=== PATIENT | male | born 1935 | race Caucasian/White ===

== ENCOUNTER 2023-09-14 10:53 | Inpatient (IN) | payer MEDICARE ==
[~2023-09-14] VITALS: Ht 172.7 cm; Wt 82.1 kg
[2023-09-14] MEDS ORDERED: CHOL25TA4 PO (11:10)
[2023-09-14] MEDS ORDERED: LISI-892 PO (11:10)
[2023-09-14] MEDS ORDERED: FLUT1AER7 IH (11:10)
[2023-09-14] MEDS ORDERED: SERT-158 PO (11:10)
[2023-09-14] MEDS ORDERED: DORZ10DR6 OU (11:10)
[2023-09-14] MEDS ORDERED: LATA2.5D14 OU (11:10)
[2023-09-14] MEDS ORDERED: TAMS0.4C94 PO (11:10)
[2023-09-14] MEDS ORDERED: ATOR10TA PO (11:10)
[2023-09-14] MEDS ORDERED: FINA-27 PO (11:10)
[2023-09-14] MEDS ORDERED: TRAZ-252 PO (11:10)
[2023-09-14 11:16] LABS: COVID AG,FIA SOURCE NASAL SWAB
[2023-09-14 11:20] LABS: BASOPHILS % (AUTO) 0.6 % (0.0-2.0); EOSINOPHILS % (AUTO) 0.6 % (1.0-6.0); HEMATOCRIT 42.9 % (41-53); LYMPHOCYTES # (AUTO) 0.7 K/uL (1.0-4.8); LYMPHOCYTES % (AUTO) 10.6 % (22.0-44.0); MEAN CORPUSCULAR HEMOGLOBIN 30.5 pg (26.0-34.0); MEAN CORPUSCULAR HGB CONC 32.7 G/dL (31.0-37.0); MEAN CORPUSCULAR VOLUME 93 fL (80-100); MONOCYTES # (AUTO) 0.6 K/uL (0.1-1.0); MONOCYTES % (AUTO) 8.6 % (2.0-9.0); NEUTROPHILS # (AUTO) 5.2 K/uL (1.8-7.7); NEUTROPHILS % (AUTO) 79.6 % (40.0-70.0); PLATELET COUNT (AUTO) 263 K/uL (150-450); RED CELL DISTRIBUTION WIDTH 14.6 % (11.5-14.5); WHITE BLOOD COUNT (AUTO) 6.6 K/uL (4.5-11.0)
[2023-09-14 11:24] LABS: APPEARANCE,URINE CLEAR (CLEAR); BILIRUBIN,URINE NEGATIVE (NEGATIVE); COLOR,URINE YELLOW (YELLOW); GLUCOSE, URINE (UA) >=1000 mg/dL (NEGATIVE); KETONES,URINE TRACE mg/dL (NEGATIVE); LEUKOCYTE ESTERASE ,URINE NEGATIVE (NEGATIVE); NITRATE,URINE NEGATIVE (NEGATIVE); OCCULT BLOOD,URINE NEGATIVE (NEGATIVE); PH,URINE 6.5 (5.0-8.0); PROTEIN,URINE TRACE mg/dL (NEGATIVE); SPECIFIC GRAVITIY, URINE 1.019 (1.003-1.030); UROBILINOGEN,URINE <=1.0 mg/dL (<=1.0)
[2023-09-14 11:43] LABS: ALCOHOL, BLOOD (SERUM) < 3 mg/dL (0-10)
[2023-09-14 11:47] LABS: ANION GAP 4 mmol/L (8-16); CALCIUM, TOTAL 8.7 mg/dL (8.8-10.5); CARBON DIOXIDE 31 mmol/L (22-29); CHLORIDE 100 mmol/L (98-107); CREATININE 0.74 mg/dL (0.60-1.30); GLOMERULAR FILTR. RATE CALC > 60 mL/min (>60); GLUCOSE,RANDOM 206 mg/dL (70-110); POTASSIUM 4.2 mmol/L (3.5-5.1); SODIUM SERUM 135 mmol/L (136-145); UREA NITROGEN, BLOOD 17 mg/dL (7-18)
[2023-09-14 11:51] LABS: BACTERIA,URINE None Seen /HPF (None Seen); RBC,URINE None Seen /HPF (0-2); SQUAMOUS EPITHELIAL CELL,UR Few /LPF (None Seen); WBC,URINE 0-2 /HPF (0-5)
[2023-09-14 11:54] LABS: SARS-COV2 (COVID) ANTIGEN,FIA Negative (Negative)
[2023-09-14 12:04] LABS: ALCOHOL, URINE DRUG SCREEN NEGATIVE (NEGATIVE); AMPHET/METH SCREEN,URINE NEGATIVE (NEGATIVE); BARBITURATE SCREEN, URINE NEGATIVE (NEGATIVE); BENZODIAZEPINES SCREEN,URINE NEGATIVE (NEGATIVE); CANNABINOID SCREEN,URINE NEGATIVE (NEGATIVE); COCAINE SCREEN,URINE NEGATIVE (NEGATIVE); METHADONE SCREEN, URINE NEGATIVE (NEGATIVE); OPIATE SCREEN,URINE NEGATIVE (NEGATIVE); PH,URINE DRUG SCREEN 6.5 (5.0-8.0); PHENCYCLIDINE SCREEN,URINE NEGATIVE (NEGATIVE)
[2023-09-14] MEDS: HALOPERIDOL LACTATE 5 MG/ML VIAL IM ONE (12:52)
[2023-09-14] MEDS: LORazepam 2 MG/ML VIAL IM ONE (12:52)
[2023-09-14] MEDS: DiphenhydrAMINE HCL 50 MG/ML VIAL IM ONE (12:52)
[2023-09-14] MEDS ORDERED: QUEtiapine FUMARATE 100 MG TABLET PO PRN (13:45)
[2023-09-14] MEDS ORDERED: LORazepam 2 MG TABLET PO PRN (13:45)
[2023-09-15] MEDS: ZOLPIDEM TARTRATE 10 MG TABLET PO PRN (00:55)
[2023-09-15 22:13] VITALS: BP 135/75; PULSE 74; RESP 18; TEMP 98.1; O2SAT 98
[2023-09-15 22:29] VITALS: BP 135/75; PULSE 74; RESP 18; TEMP 98.1
[2023-09-16 08:00] VITALS: BP 128/62; PULSE 93; RESP 18; TEMP 97.8; O2SAT 98
[2023-09-16] MEDS ORDERED: ALBUTEROL SULFATE HFA 90 MCG/PUFF 8 GM INHALER IH PRN (09:00)
[2023-09-16] MEDS ORDERED: ONDANSETRON HCL 4 MG TABLET PO PRN (09:00)
[2023-09-16] MEDS ORDERED: MAG HYDROX/ALUMINUM HYD/SIMETH ES 30 ML SUSPENSION UDCUP PO PRN (09:00)
[2023-09-16] MEDS ORDERED: GuaiFENesin/D-METHORPHAN [SUGAR-FREE] 200-20MG/10 ML SYRUP UDCUP PO PRN (09:00)
[2023-09-16] MEDS ORDERED: NICOTINE 14 MG/24 HOUR PATCH TD PRN (09:00)
[2023-09-16] MEDS ORDERED: ACETAMINOPHEN 325 MG TABLET PO PRN (09:00)
[2023-09-16] MEDS ORDERED: LOPERAMIDE HCL 2 MG CAPSULE PO PRN (09:00)
[2023-09-16] MEDS ORDERED: PETROLATUM,WHITE 28 GM JELLY TP PRN (09:00)
[2023-09-16] MEDS ORDERED: IBUPROFEN 400 MG TABLET PO PRN (09:00)
[2023-09-16] MEDS ORDERED: CloNIDine HCL 0.1 MG TABLET PO PRN (09:00)
[2023-09-16] MEDS: FINASTERIDE 5 MG TABLET PO SCH (09:53)
[2023-09-16] MEDS: DORZOLAMIDE HCL 2% 10 ML OPHTHALMIC SOLUTION OU SCH (09:59)
[2023-09-16] MEDS: LATANOPROST 0.005% 2.5 ML OPHTHALMIC SOLUTION OU SCH (09:59)
[2023-09-16] MEDS: LISINOPRIL 5 MG TABLET PO SCH (10:00)
[2023-09-16] MEDS: CHOLECALCIFEROL (VIT D3) 1,000 UNITS [25 MCG] TABLET PO SCH (10:00)
[2023-09-16] MEDS: TAMSULOSIN HCL 0.4 MG CAPSULE PO SCH (10:00)
[2023-09-16] MEDS: MAGNESIUM HYDROXIDE SUSPENSION 30 ML UDCUP PO PRN (10:54)
[2023-09-16] MEDS: DOCUSATE SODIUM 100 MG CAPSULE PO PRN (10:55)
[2023-09-16] MEDS: SERTRALINE HCL 50 MG TABLET PO SCH (14:37)
[2023-09-16] MEDS: DIVALPROEX SODIUM 250 MG DR TABLET PO SCH (16:11)
[2023-09-16] MEDS: ATORVASTATIN CALCIUM 10 MG TABLET PO SCH (20:24)
[2023-09-16 22:36] VITALS: RESP 18
[2023-09-17 07:51] LABS: HEMOGLOBIN A1C 7.7 % (3.8-5.6)
[2023-09-17 08:01] LABS: THYROID STIMULATING HORMONE 1.62 uIU/mL (0.36-3.74)
[2023-09-17 08:33] LABS: CHOL/HDL RATIO 2.3 (4.2-7.3)
[2023-09-17 09:18] VITALS: RESP 18
[2023-09-17 17:31] LABS: GLUCOMETER DEV NAME(LOC) 3E.I 2; GLUCOSE,POINT OF CARE 217 MG/DL (70-110)
[2023-09-17 20:44] VITALS: RESP 18
[2023-09-18] MEDS: MetFORMIN HCL 500 MG TABLET PO SCH (07:17)
[2023-09-18 10:24] VITALS: BP 152/59; PULSE 107; RESP 18; TEMP 97.5; O2SAT 98
[2023-09-18 16:41] LABS: GLUCOMETER DEV NAME(LOC) 3E.I 2; GLUCOSE,POINT OF CARE 155 MG/DL (70-110)
[2023-09-18 22:23] VITALS: BP 117/77; PULSE 97; RESP 18; TEMP 98.1; O2SAT 97
[2023-09-19 11:28] VITALS: BP 113/67; PULSE 76; RESP 17; TEMP 96.8; O2SAT 97
[2023-09-19 17:41] LABS: GLUCOMETER DEV NAME(LOC) 3EX.2; GLUCOSE,POINT OF CARE 277 MG/DL (70-110)
[2023-09-19 22:33] VITALS: BP 115/63; PULSE 86; RESP 18; TEMP 98.3; O2SAT 95
[2023-09-20] MEDS ORDERED: INSULIN LISPRO 100 UNITS/ML SQ PRN (06:30)
[2023-09-20] MEDS ORDERED: DEXTROSE 50%-WATER 25 GM/50 ML SYRINGE IVP PRN (06:30)
[2023-09-20 15:00] VITALS: BP 140/73; PULSE 69; RESP 16; TEMP 98; O2SAT 98
[2023-09-20 17:50] LABS: GLUCOMETER DEV NAME(LOC) 3EX.2; GLUCOSE,POINT OF CARE 217 MG/DL (70-110)
[2023-09-20 21:37] VITALS: BP 101/51; PULSE 89; RESP 18; TEMP 98.8; O2SAT 96
[2023-09-21 09:47] VITALS: BP 117/63; PULSE 95; RESP 19; TEMP 97.2; O2SAT 97
[2023-09-21] MEDS ORDERED: DIVA-111 PO ×2 (12:56→12:57)
[2023-09-21] MEDS ORDERED: METF-1211 PO (13:02)
[2023-09-21] MEDS ORDERED: MetFORMIN HCL 500 MG TABLET PO SCH (17:30)
== END 2023-09-21 15:56 | DRG 885 ==
LOC: EMS 10:55 → 3EI 09-15 20:00 → EMS 09-15 20:02 → 3EX 09-18 13:39
PROVIDERS: ADMIT Psychiatry & Neurology Psychiatry; ATTEND Psychiatry & Neurology Psychiatry
PROC: GZHZZZZ Group Psychotherapy (ICD-10-PCS; principal; 2023-09-16)
DX: F33.3 Major depressive disorder, recurrent, severe with psychotic symptoms (principal); F03.918 Unspecified dementia, unspecified severity, with other behavioral disturbance; E11.9 Type 2 diabetes mellitus without complications; E78.5 Hyperlipidemia, unspecified; I10 Essential (primary) hypertension; E55.9 Vitamin D deficiency, unspecified; Z20.822 Contact with and (suspected) exposure to COVID-19; N40.0 Benign prostatic hyperplasia without lower urinary tract symptoms; J44.9 Chronic obstructive pulmonary disease, unspecified; Z79.899 Other long term (current) drug therapy
CPT/HCPCS: 80048; 80061; 80307; 81001; 82962; 83036; 84443; 85025; 99291; G0378; G0480; J1200; J1630; J2060

== ENCOUNTER 2023-12-18 16:55 | Inpatient (IN) | payer MEDICARE, MEDICAID ==
[~2023-12-18] VITALS: Ht 175.3 cm; Wt 71.7 kg
[~2023-12-18 16:55] MED LIST: ATOR10TA PO; CHOL25TA4 PO; DIVA-111 PO; DORZ10DR6 OU; FINA-27 PO; LATA2.5D14 OU; LISI-892 PO; METF-1211 PO; SERT-158 PO; TAMS0.4C94 PO
[2023-12-18] MEDS ORDERED: SERT-439 PO (17:28)
[2023-12-18] MEDS ORDERED: FINA5TAB41 PO (17:28)
[2023-12-18] MEDS ORDERED: ATOR10TA69 PO (17:28)
[2023-12-18] MEDS ORDERED: LISI5TAB21 PO (17:28)
[2023-12-18 17:47] LABS: COVID AG,FIA SOURCE NPH
[2023-12-18 17:51] LABS: BASOPHILS % (AUTO) 0.7 % (0.0-2.0); EOSINOPHILS % (AUTO) 1.9 % (1.0-6.0); HEMATOCRIT 43.1 % (41-53); HEMOGLOBIN 14.1 g/dL (13.5-17.5); LYMPHOCYTES # (AUTO) 1.3 K/uL (1.0-4.8); LYMPHOCYTES % (AUTO) 23.3 % (22.0-44.0); MEAN CORPUSCULAR HEMOGLOBIN 30.9 pg (26.0-34.0); MEAN CORPUSCULAR HGB CONC 32.7 G/dL (31.0-37.0); MEAN CORPUSCULAR VOLUME 94 fL (80-100); MONOCYTES # (AUTO) 0.7 K/uL (0.1-1.0); MONOCYTES % (AUTO) 12.5 % (2.0-9.0); NEUTROPHILS # (AUTO) 3.5 K/uL (1.8-7.7); NEUTROPHILS % (AUTO) 61.6 % (40.0-70.0); PLATELET COUNT (AUTO) 196 K/uL (150-450); RED BLOOD CELL COUNT(AUTO) 4.57 MIL/uL (4.50-5.90); WHITE BLOOD COUNT (AUTO) 5.7 K/uL (4.5-11.0)
[2023-12-18 18:03] LABS: ANION GAP 1 mmol/L (8-16); CALCIUM, TOTAL 9.1 mg/dL (8.8-10.5); CARBON DIOXIDE 35 mmol/L (22-29); CHLORIDE 102 mmol/L (98-107); CREATININE 0.54 mg/dL (0.60-1.30); GLOMERULAR FILTR. RATE CALC > 60 mL/min (>60); GLUCOSE,RANDOM 156 mg/dL (70-110); POTASSIUM 4.1 mmol/L (3.5-5.1); SODIUM SERUM 138 mmol/L (136-145); UREA NITROGEN, BLOOD 14 mg/dL (7-18)
[2023-12-18 18:08] LABS: VALPROIC ACID 9 mcg/mL (50-100)
[2023-12-18 18:10] LABS: SARS-COV2 (COVID) ANTIGEN,FIA Negative (Negative)
[2023-12-18 18:13] LABS: ALCOHOL, BLOOD (SERUM) < 3 mg/dL (0-10)
[2023-12-18] MEDS: ZOLPIDEM TARTRATE 10 MG TABLET PO PRN (22:29)
[2023-12-19 06:02] LABS: HEMOGLOBIN A1C 6.2 % (3.8-5.6)
[2023-12-19 06:05] LABS: CHOL/HDL RATIO 1.8 (4.2-7.3)
[2023-12-19 07:56] LABS: APPEARANCE,URINE HAZY (CLEAR); BILIRUBIN,URINE NEGATIVE (NEGATIVE); COLOR,URINE LIGHT YELLOW (YELLOW); GLUCOSE, URINE (UA) NEGATIVE (NEGATIVE); KETONES,URINE NEGATIVE (NEGATIVE); LEUKOCYTE ESTERASE ,URINE NEGATIVE (NEGATIVE); NITRATE,URINE NEGATIVE (NEGATIVE); OCCULT BLOOD,URINE NEGATIVE (NEGATIVE); PH,URINE 7.5 (5.0-8.0); PH,URINE DRUG SCREEN 7.5 (5.0-8.0); PROTEIN,URINE NEGATIVE (NEGATIVE); SPECIFIC GRAVITIY, URINE 1.011 (1.003-1.030); UROBILINOGEN,URINE <=1.0 mg/dL (<=1.0)
[2023-12-19 08:04] LABS: ALCOHOL, URINE DRUG SCREEN NEGATIVE (NEGATIVE); AMPHET/METH SCREEN,URINE NEGATIVE (NEGATIVE); BARBITURATE SCREEN, URINE NEGATIVE (NEGATIVE); BENZODIAZEPINES SCREEN,URINE NEGATIVE (NEGATIVE); CANNABINOID SCREEN,URINE NEGATIVE (NEGATIVE); COCAINE SCREEN,URINE NEGATIVE (NEGATIVE); METHADONE SCREEN, URINE NEGATIVE (NEGATIVE); OPIATE SCREEN,URINE NEGATIVE (NEGATIVE); PHENCYCLIDINE SCREEN,URINE NEGATIVE (NEGATIVE)
[2023-12-19] MEDS: HALOPERIDOL 5 MG TABLET PO PRN (17:07)
[2023-12-19] MEDS: LORazepam 2 MG TABLET PO PRN (17:07)
[2023-12-20 08:00] VITALS: O2SAT 97
[2023-12-20 10:44] VITALS: BP 132/78; PULSE 85; RESP 18; TEMP 98; O2SAT 97
[2023-12-20] MEDS ORDERED: INFLUENZA VIRUS VACCINE TVS (6MO+) 2024-25/PF 45 MCG/0.5 ML SYRINGE IM. ONE (11:45)
[2023-12-20] MEDS ORDERED: PETROLATUM,WHITE 28 GM JELLY TP PRN (14:30)
[2023-12-20] MEDS ORDERED: NICOTINE 14 MG/24 HOUR PATCH TD PRN (14:30)
[2023-12-20] MEDS ORDERED: ONDANSETRON 4 MG TABLET PO PRN (14:30)
[2023-12-20] MEDS ORDERED: DOCUSATE SODIUM 100 MG CAPSULE PO PRN (14:30)
[2023-12-20] MEDS ORDERED: MAGNESIUM HYDROXIDE SUSPENSION 30 ML UDCUP PO PRN (14:30)
[2023-12-20] MEDS ORDERED: GuaiFENesin/D-METHORPHAN [SUGAR-FREE] 200-20MG/10 ML SYRUP UDCUP PO PRN (14:30)
[2023-12-20] MEDS ORDERED: ACETAMINOPHEN 325 MG TABLET PO PRN (14:30)
[2023-12-20] MEDS ORDERED: CloNIDine HCL 0.1 MG TABLET PO PRN (14:30)
[2023-12-20] MEDS ORDERED: LOPERAMIDE HCL 2 MG CAPSULE PO PRN (14:30)
[2023-12-20] MEDS ORDERED: MAG HYDROX/ALUMINUM HYD/SIMETH ES 30 ML SUSPENSION UDCUP PO PRN (14:30)
[2023-12-20] MEDS ORDERED: ALBUTEROL SULFATE HFA 90 MCG/PUFF 8 GM INHALER IH PRN (14:30)
[2023-12-20 16:18] LABS: APPEARANCE,URINE CLEAR (CLEAR); BILIRUBIN,URINE NEGATIVE (NEGATIVE); COLOR,URINE LIGHT YELLOW (YELLOW); GLUCOSE, URINE (UA) TRACE mg/dL (NEGATIVE); KETONES,URINE NEGATIVE (NEGATIVE); LEUKOCYTE ESTERASE ,URINE NEGATIVE (NEGATIVE); NITRATE,URINE NEGATIVE (NEGATIVE); OCCULT BLOOD,URINE NEGATIVE (NEGATIVE); PH,URINE 7.5 (5.0-8.0); PH,URINE DRUG SCREEN 7.5 (5.0-8.0); PROTEIN,URINE NEGATIVE (NEGATIVE); SPECIFIC GRAVITIY, URINE 1.011 (1.003-1.030); UROBILINOGEN,URINE <=1.0 mg/dL (<=1.0)
[2023-12-20 16:26] LABS: ALCOHOL, URINE DRUG SCREEN NEGATIVE (NEGATIVE); AMPHET/METH SCREEN,URINE NEGATIVE (NEGATIVE); BARBITURATE SCREEN, URINE NEGATIVE (NEGATIVE); BENZODIAZEPINES SCREEN,URINE NEGATIVE (NEGATIVE); CANNABINOID SCREEN,URINE NEGATIVE (NEGATIVE); COCAINE SCREEN,URINE NEGATIVE (NEGATIVE); METHADONE SCREEN, URINE NEGATIVE (NEGATIVE); OPIATE SCREEN,URINE NEGATIVE (NEGATIVE); PHENCYCLIDINE SCREEN,URINE NEGATIVE (NEGATIVE)
[2023-12-20] MEDS: MetFORMIN HCL 500 MG TABLET PO SCH (16:29)
[2023-12-20 17:40] LABS: GLUCOMETER DEV NAME(LOC) 3EX.2; GLUCOSE,POINT OF CARE 165 MG/DL (70-110)
[2023-12-20 18:15] VITALS: BP 112/82; PULSE 90; RESP 20; TEMP 98.3; O2SAT 97
[2023-12-20] MEDS ORDERED: DEXTROSE 50%-WATER 25 GM/50 ML SYRINGE IVP PRN (18:45)
[2023-12-20 20:11] VITALS: BP 121/83; PULSE 85; RESP 18; TEMP 98
[2023-12-20 20:34] LABS: TROPONIN I-HIGH SENSITIVITY 5 ng/L (<76)
[2023-12-20] MEDS: DIVALPROEX SODIUM 250 MG DR TABLET PO SCH (20:52)
[2023-12-21 06:21] LABS: GLUCOMETER DEV NAME(LOC) 3EX.2; GLUCOSE,POINT OF CARE 86 MG/DL (70-110)
[2023-12-21] MEDS: INSULIN LISPRO 100 UNITS/ML SQ PRN (07:01)
[2023-12-21 08:35] LABS: HEMOGLOBIN A1C 6.1 % (3.8-5.6)
[2023-12-21 08:44] LABS: CHOL/HDL RATIO 2.1 (4.2-7.3); THYROID STIMULATING HORMONE 1.76 uIU/mL (0.36-3.74)
[2023-12-21 09:05] VITALS: BP 122/77; PULSE 100; RESP 16; TEMP 97.9; O2SAT 95
[2023-12-21] MEDS: LISINOPRIL 5 MG TABLET PO SCH (09:33)
[2023-12-21] MEDS: TAMSULOSIN HCL 0.4 MG CAPSULE PO SCH (09:33)
[2023-12-21] MEDS: SERTRALINE HCL 50 MG TABLET PO SCH (09:33)
[2023-12-21] MEDS: ATORVASTATIN CALCIUM 10 MG TABLET PO SCH (09:34)
[2023-12-21] MEDS: FINASTERIDE 5 MG TABLET PO SCH (09:34)
[2023-12-21] MEDS: CHOLECALCIFEROL (VIT D3) 1,000 UNITS [25 MCG] TABLET PO SCH (09:34)
[2023-12-21 11:56] LABS: GLUCOMETER DEV NAME(LOC) 3EX.2; GLUCOSE,POINT OF CARE 153 MG/DL (70-110)
[2023-12-21 17:21] LABS: GLUCOMETER DEV NAME(LOC) 3EX.2; GLUCOSE,POINT OF CARE 161 MG/DL (70-110)
[2023-12-21 20:16] LABS: GLUCOMETER DEV NAME(LOC) 3EX.2; GLUCOSE,POINT OF CARE 172 MG/DL (70-110)
[2023-12-21 21:13] VITALS: BP 101/55; PULSE 98; RESP 18; TEMP 99.1; O2SAT 96
[2023-12-21 21:45] VITALS: BP 101/55; PULSE 98; RESP 18; TEMP 99.1; O2SAT 96
[2023-12-21] MEDS: IBUPROFEN 400 MG TABLET PO PRN (21:48)
[2023-12-21] MEDS: ETHYL ALCOHOL 62% ANTISEPTIC NASAL SANITIZER 0.6 ML AMPUL NASAL SCH (21:48)
[2023-12-22 06:30] LABS: GLUCOMETER DEV NAME(LOC) 3EX.2; GLUCOSE,POINT OF CARE 114 MG/DL (70-110)
[2023-12-22 10:09] VITALS: BP 104/69; PULSE 97; RESP 18; TEMP 97.6; O2SAT 97
[2023-12-22 12:01] LABS: GLUCOMETER DEV NAME(LOC) 3EX.2; GLUCOSE,POINT OF CARE 138 MG/DL (70-110)
[2023-12-22 16:31] LABS: GLUCOMETER DEV NAME(LOC) 3EX.2; GLUCOSE,POINT OF CARE 168 MG/DL (70-110)
[2023-12-22 20:30] LABS: GLUCOMETER DEV NAME(LOC) 3EX.2; GLUCOSE,POINT OF CARE 121 MG/DL (70-110)
[2023-12-22 21:28] VITALS: BP 115/58; PULSE 97; RESP 18; TEMP 98.1; O2SAT 96
[2023-12-23 06:00] LABS: GLUCOMETER DEV NAME(LOC) 3EX.2; GLUCOSE,POINT OF CARE 122 MG/DL (70-110)
[2023-12-23 09:34] VITALS: BP 123/50; PULSE 62; RESP 17; TEMP 97.6; O2SAT 95
[2023-12-23 11:35] LABS: GLUCOMETER DEV NAME(LOC) 3EX.2; GLUCOSE,POINT OF CARE 171 MG/DL (70-110)
[2023-12-23 16:36] LABS: GLUCOMETER DEV NAME(LOC) 3EX.2; GLUCOSE,POINT OF CARE 140 MG/DL (70-110)
[2023-12-23 21:35] LABS: GLUCOMETER DEV NAME(LOC) 3EX.2; GLUCOSE,POINT OF CARE 115 MG/DL (70-110)
[2023-12-23 22:40] VITALS: RESP 18
[2023-12-24 06:46] LABS: GLUCOMETER DEV NAME(LOC) 3EX.2; GLUCOSE,POINT OF CARE 128 MG/DL (70-110)
[2023-12-24 09:45] VITALS: BP 125/53; PULSE 91; RESP 19; TEMP 92.9; O2SAT 97
[2023-12-24 11:26] LABS: GLUCOMETER DEV NAME(LOC) 3EX.2; GLUCOSE,POINT OF CARE 163 MG/DL (70-110)
[2023-12-24 17:21] LABS: GLUCOMETER DEV NAME(LOC) 3EX.2; GLUCOSE,POINT OF CARE 119 MG/DL (70-110)
[2023-12-24 20:06] VITALS: BP 129/76; PULSE 89; RESP 18; TEMP 97.9
[2023-12-24 21:30] LABS: GLUCOMETER DEV NAME(LOC) 3EX.2; GLUCOSE,POINT OF CARE 181 MG/DL (70-110)
[2023-12-25 06:26] LABS: GLUCOMETER DEV NAME(LOC) 3EX.2; GLUCOSE,POINT OF CARE 104 MG/DL (70-110)
[2023-12-25 09:00] VITALS: BP 134/64; PULSE 102; RESP 17; TEMP 97.5; O2SAT 99
[2023-12-25 12:11] LABS: GLUCOMETER DEV NAME(LOC) 3EX.2; GLUCOSE,POINT OF CARE 235 MG/DL (70-110)
[2023-12-25 17:01] LABS: GLUCOMETER DEV NAME(LOC) 3EX.2; GLUCOSE,POINT OF CARE 131 MG/DL (70-110)
[2023-12-25 20:29] VITALS: BP 129/72; PULSE 91; RESP 18; TEMP 97.6; O2SAT 97
[2023-12-26 06:21] LABS: GLUCOMETER DEV NAME(LOC) 3EX.2; GLUCOSE,POINT OF CARE 127 MG/DL (70-110)
[2023-12-26 10:28] VITALS: BP 136/67; PULSE 91; RESP 18; TEMP 97.9; O2SAT 95
[2023-12-26 11:51] LABS: GLUCOMETER DEV NAME(LOC) 3EX.2; GLUCOSE,POINT OF CARE 116 MG/DL (70-110)
[2023-12-26 16:50] LABS: GLUCOMETER DEV NAME(LOC) 3EX.2; GLUCOSE,POINT OF CARE 120 MG/DL (70-110)
[2023-12-26] MEDS ORDERED: ATOR10TA PO (20:00)
[2023-12-26 20:16] LABS: GLUCOMETER DEV NAME(LOC) 3EX.2; GLUCOSE,POINT OF CARE 155 MG/DL (70-110)
[2023-12-26 21:03] VITALS: BP 95/74; PULSE 82; RESP 18; O2SAT 98
== END 2023-12-26 21:32 | DRG 881 ==
LOC: EMS 16:55 → 3EI 12-20 10:27 → 3EX 12-23 18:26
PROVIDERS: ADMIT Psychiatry & Neurology Child & Adolescent Psychiatry; ATTEND Psychiatry & Neurology Child & Adolescent Psychiatry
PROC: GZ56ZZZ Individual Psychotherapy, Supportive (ICD-10-PCS; principal; 2023-12-20)
PROC: GZ52ZZZ Individual Psychotherapy, Cognitive (ICD-10-PCS; 2023-12-20)
DX: F32.9 Major depressive disorder, single episode, unspecified (principal); Z93.3 Colostomy status; F03.90 Unspecified dementia, unspecified severity, without behavioral disturbance, psychotic disturbance, mood disturbance, and anxiety; E11.9 Type 2 diabetes mellitus without complications; J44.9 Chronic obstructive pulmonary disease, unspecified; Z20.822 Contact with and (suspected) exposure to COVID-19; E78.00 Pure hypercholesterolemia, unspecified; F43.10 Post-traumatic stress disorder, unspecified; I10 Essential (primary) hypertension; N40.0 Benign prostatic hyperplasia without lower urinary tract symptoms; D64.9 Anemia, unspecified; K57.30 Diverticulosis of large intestine without perforation or abscess without bleeding; G47.00 Insomnia, unspecified; Z79.84 Long term (current) use of oral hypoglycemic drugs; F91.8 Other conduct disorders
CPT/HCPCS: 80048; 80061; 80164; 80307; 81003; 82962; 83036; 84443; 84484; 85025; 87081; 87481; 93005; 99285; G0378; G0480

== ENCOUNTER 2024-04-02 20:47 | Inpatient (IN) | payer MEDICARE, MEDICAID ==
[~2024-04-02] VITALS: Ht 167.6 cm; Wt 77.6 kg
[~2024-04-02 20:47] MED LIST changes: -DIVA-111 PO; +DIVA-85 PO; +DORZ10DR6 OD; -DORZ10DR6 OU; -FINA-27 PO; -LATA2.5D14 OU; +XALA2.5OS OU
[2024-04-02] MEDS ORDERED: ACETAMINOPHEN 325 MG TABLET PO PRN (21:30)
[2024-04-02] MEDS ORDERED: PETROLATUM,WHITE 28 GM JELLY TP PRN (21:30)
[2024-04-02] MEDS ORDERED: CloNIDine HCL 0.1 MG TABLET PO PRN (21:30)
[2024-04-02] MEDS ORDERED: MAG HYDROX/ALUMINUM HYD/SIMETH ES 30 ML SUSPENSION UDCUP PO PRN (21:30)
[2024-04-02] MEDS ORDERED: MAGNESIUM HYDROXIDE SUSPENSION 30 ML UDCUP PO PRN (21:30)
[2024-04-02] MEDS ORDERED: ALBUTEROL SULFATE HFA 90 MCG/PUFF 8 GM INHALER IH PRN (21:30)
[2024-04-02] MEDS ORDERED: NICOTINE 14 MG/24 HOUR PATCH TD PRN (21:30)
[2024-04-02] MEDS ORDERED: DOCUSATE SODIUM 100 MG CAPSULE PO PRN (21:30)
[2024-04-02] MEDS ORDERED: ONDANSETRON 4 MG TABLET PO PRN (21:30)
[2024-04-02] MEDS ORDERED: LOPERAMIDE HCL 2 MG CAPSULE PO PRN (21:30)
[2024-04-02] MEDS ORDERED: ZOLPIDEM TARTRATE 10 MG TABLET PO PRN (21:45)
[2024-04-02] MEDS ORDERED: HALOPERIDOL 5 MG TABLET PO PRN ×2 (21:45)
[2024-04-02 21:55] VITALS: RESP 18
[2024-04-02] MEDS: LATANOPROST 0.005% 2.5 ML OPHTHALMIC SOLUTION OU SCH (22:00)
[2024-04-02] MEDS: ATORVASTATIN CALCIUM 10 MG TABLET PO SCH (22:00)
[2024-04-03] MEDS: LISINOPRIL 5 MG TABLET PO SCH (09:08)
[2024-04-03] MEDS: SERTRALINE HCL 50 MG TABLET PO SCH (09:08)
[2024-04-03] MEDS: TAMSULOSIN HCL 0.4 MG CAPSULE PO SCH (09:09)
[2024-04-03] MEDS: CHOLECALCIFEROL (VIT D3) 1,000 UNITS [25 MCG] TABLET PO SCH (09:09)
[2024-04-03] MEDS: MetFORMIN HCL 500 MG TABLET PO SCH (09:09)
[2024-04-03] MEDS: DORZOLAMIDE HCL 2% 10 ML OPHTHALMIC SOLUTION OD SCH (09:11)
[2024-04-03] MEDS: DIVALPROEX SODIUM 125 MG DR TABLET PO SCH (11:19)
[2024-04-03 13:39] VITALS: BP 125/90; PULSE 88; RESP 18; TEMP 97.8; O2SAT 96
[2024-04-03 18:11] VITALS: BP 130/94; PULSE 88; RESP 1; TEMP 97.8; O2SAT 97
[2024-04-03] MEDS: IBUPROFEN 400 MG TABLET PO PRN (18:11)
[2024-04-03 19:11] VITALS: BP 130/94; PULSE 87; RESP 18; TEMP 97.7; O2SAT 98
[2024-04-03 21:16] LABS: BASOPHILS % (AUTO) 0.8 % (0.0-2.0); EOSINOPHILS % (AUTO) 2.8 % (1.0-6.0); HEMATOCRIT 41.7 % (41-53); HEMOGLOBIN 13.8 g/dL (13.5-17.5); LYMPHOCYTES # (AUTO) 1.8 K/uL (1.0-4.8); MEAN CORPUSCULAR HEMOGLOBIN 31.8 pg (26.0-34.0); MEAN CORPUSCULAR HGB CONC 33.1 G/dL (31.0-37.0); MEAN CORPUSCULAR VOLUME 96 fL (80-100); MONOCYTES # (AUTO) 0.6 K/uL (0.1-1.0); MONOCYTES % (AUTO) 9.5 % (2.0-9.0); NEUTROPHILS # (AUTO) 3.5 K/uL (1.8-7.7); NEUTROPHILS % (AUTO) 57.9 % (40.0-70.0); PLATELET COUNT (AUTO) 194 K/uL (150-450); RED BLOOD CELL COUNT(AUTO) 4.33 MIL/uL (4.50-5.90); RED CELL DISTRIBUTION WIDTH 15.6 % (11.5-14.5)
[2024-04-03 21:24] LABS: HEMOGLOBIN A1C 5.9 % (3.8-5.6)
[2024-04-03 21:39] LABS: ALANINE AMINOTRANSFERASE 31 U/L (12-78); ALBUMIN 2.6 g/dL (3.4-5.0); ALKALINE PHOSPHATASE 156 U/L (46-116); ANION GAP 2 mmol/L (8-16); ASPARTATE AMINOTRANSFERASE 23 U/L (15-37); BILIRUBIN,TOTAL 0.3 mg/dL (0.1-1.0); CALCIUM, TOTAL 8.9 mg/dL (8.8-10.5); CARBON DIOXIDE 34 mmol/L (22-29); CHLORIDE 105 mmol/L (98-107); CREATININE 0.53 mg/dL (0.60-1.30); GLOMERULAR FILTR. RATE CALC > 60 mL/min (>60); GLUCOSE,RANDOM 214 mg/dL (70-110); POTASSIUM 4.3 mmol/L (3.5-5.1); SODIUM SERUM 141 mmol/L (136-145); TOTAL PROTEIN, SERUM 5.7 g/dL (6.4-8.2); UREA NITROGEN, BLOOD 21 mg/dL (7-18)
[2024-04-03 22:08] VITALS: BP 105/52; PULSE 96; RESP 18; TEMP 96.7; O2SAT 96
[2024-04-04] MEDS: LORazepam 2 MG TABLET PO PRN (02:02)
[2024-04-04 08:01] LABS: CHOL/HDL RATIO 2.3 (4.2-7.3)
[2024-04-04 10:36] VITALS: BP 120/69; PULSE 95; RESP 17; TEMP 98; O2SAT 95
[2024-04-04 21:14] VITALS: BP 98/51; PULSE 76; RESP 18; TEMP 98; O2SAT 94
[2024-04-05] MEDS: ZOLPIDEM TARTRATE 10 MG TABLET PO PRN (01:11)
[2024-04-05 10:22] VITALS: BP 119/59; PULSE 85; RESP 17; TEMP 97.4; O2SAT 96
[2024-04-05 20:28] VITALS: BP 105/62; PULSE 75; RESP 18; TEMP 97.2
[2024-04-06 14:34] VITALS: BP 127/78; PULSE 74; RESP 18; TEMP 97.6; O2SAT 96
[2024-04-06] MEDS: GuaiFENesin/D-METHORPHAN [SUGAR-FREE] 200-20MG/10 ML SYRUP UDCUP PO PRN (16:11)
[2024-04-06 16:45] LABS: GLUCOMETER DEV NAME(LOC) 3EX.2; GLUCOSE,POINT OF CARE 122 MG/DL (70-110)
[2024-04-06 20:40] VITALS: BP 109/52; PULSE 69; RESP 19; TEMP 97.8; O2SAT 94
[2024-04-07 07:01] LABS: GLUCOMETER DEV NAME(LOC) 3E.C; GLUCOSE,POINT OF CARE 148 MG/DL (70-110)
[2024-04-07 11:13] VITALS: BP 107/89; PULSE 55; RESP 18; TEMP 97.6; O2SAT 96
[2024-04-07] MEDS: LORazepam 2 MG TABLET PO PRN (20:48)
[2024-04-07 20:57] VITALS: BP 110/75; PULSE 62; RESP 18; TEMP 97.5; O2SAT 97
[2024-04-08 06:30] LABS: GLUCOMETER DEV NAME(LOC) 3EX.2; GLUCOSE,POINT OF CARE 80 MG/DL (70-110)
[2024-04-08 09:00] VITALS: BP 109/61; PULSE 61; RESP 17; TEMP 97.7; O2SAT 96
[2024-04-08 16:51] LABS: GLUCOMETER DEV NAME(LOC) 3E.C; GLUCOSE,POINT OF CARE 132 MG/DL (70-110)
== END 2024-04-08 19:23 | DRG 885 ==
LOC: 3EX 21:15
PROVIDERS: ADMIT Psychiatry & Neurology Child & Adolescent Psychiatry; ATTEND Psychiatry & Neurology Child & Adolescent Psychiatry
PROC: GZ52ZZZ Individual Psychotherapy, Cognitive (ICD-10-PCS; principal; 2024-04-03)
PROC: GZHZZZZ Group Psychotherapy (ICD-10-PCS; 2024-04-03)
DX: F33.1 Major depressive disorder, recurrent, moderate (principal); E11.65 Type 2 diabetes mellitus with hyperglycemia; F03.93 Unspecified dementia, unspecified severity, with mood disturbance; F03.918 Unspecified dementia, unspecified severity, with other behavioral disturbance; I10 Essential (primary) hypertension; K58.9 Irritable bowel syndrome, unspecified; J44.9 Chronic obstructive pulmonary disease, unspecified; E78.5 Hyperlipidemia, unspecified; K57.30 Diverticulosis of large intestine without perforation or abscess without bleeding; E55.9 Vitamin D deficiency, unspecified; N40.0 Benign prostatic hyperplasia without lower urinary tract symptoms; Z79.899 Other long term (current) drug therapy
CPT/HCPCS: 80053; 80061; 80164; 82948; 82962; 83036; 84443; 85025; G0378